=== PATIENT | female | born 1960 ===

== ENCOUNTER → 2021-07-30 | Outpatient (CLI) | payer OTHER ==
[~2021-07-30] VITALS: Ht 157 cm; Wt 82.0 kg
[~2021-07-30] MED LIST: LIDOCAINE 1% INJ 20 ML VIAL INJ ONE
--- NOTE | 2021-07-30 16:37 | Diagnostic Imaging Report ---
INDICATION: Ultrasound-guided biopsy of the left breast. INDICATION: Abnormal mammogram. FINDINGS: The mammogram and ultrasound exam of the left breast performed on 07/14/2021 noted a 1.5 x 1.9 x 1.3 cm hypoechoic irregular spiculated shadowing mass in the 2 o'clock position of the left breast. This finding was felt to be suspicious for malignancy. Following aseptic preparation of the skin and administration of local anesthesia, four passes were made through the area of concern with a 14-gauge Achieve needle. Following the biopsy, a clip was inserted into the biopsy site. The patient tolerated the procedure well and was dismissed in good condition. IMPRESSION: There has been a successful ultrasound-guided biopsy of the hypoechoic lesion in the left breast. A final pathology report is pending. Dictated by: Dictated on workstation # [id number]
--- NOTE | 2021-07-31 09:37 | Diagnostic Imaging Report ---
Unilateral diagnostic left mammogram INDICATION: Post biopsy The recent 3D bilateral diagnostic mammogram performed at [facility] in [place], [place] on 07/14/2021 did reveal an area of architectural distortion within the left breast at the 2 o'clock position. The ultrasound exam performed in conjunction with that study also noted a poorly defined hypoechoic mass in this region and biopsy was recommended to exclude malignancy. The patient did undergo an ultrasound-guided biopsy of the area of concern in the left breast just prior to this exam.. On the CC and ML images of this exam, there is a stereotactic clip in the region of the architectural distortion seen on the prior exam. Therefore, I do feel that the area in question has been adequately sampled. A final pathology report is pending. IMPRESSION: The stereotactic clip is in close proximity to the area of architectural distortion seen previously. A final pathology report is pending. Dictated by: Dictated on workstation # [id number]
== END ==
LOC: RAD 13:00
PROVIDERS: ATTEND Nurse Practitioner Family
DX: N63.21 Unspecified lump in the left breast, upper outer quadrant (principal)
CPT/HCPCS: 19083; 77065; G0279

== ENCOUNTER 2021-08-12 10:02 | Outpatient (RCR) | payer SELFPAY ==
[2021-08-27] MEDS ORDERED: METO-333 PO (12:26)
[2021-08-27] MEDS ORDERED: ACHD5005 PO (12:26)
== END 2021-09-11 | disposition home or self-care (01) ==
LOC: ONC 10:02
PROVIDERS: ATTEND Internal Medicine Hematology & Oncology
DX: C50.912 Malignant neoplasm of unspecified site of left female breast (principal)
CPT/HCPCS: 99214

== ENCOUNTER 2021-08-20 05:35 | Outpatient (CLI) | payer SELFPAY ==
[~2021-08-20] VITALS: Ht 157.4 cm; Wt 83.9 kg
== END 2021-08-20 15:49 | disposition home or self-care (01) ==
LOC: PREOP 05:35
PROVIDERS: ATTEND Surgery
DX: Z01.818 Encounter for other preprocedural examination (principal)

== ENCOUNTER 2021-08-27 06:06 | Day surgery (SDC) | payer SELFPAY ==
[2021-08-27] VITALS (11 sets, daily range): BP systolic 138–198; BP diastolic 76–98
[~2021-08-27] VITALS: Ht 157.5 cm; Wt 83.9 kg
[2021-08-27] MEDS ORDERED: ceFAZolin 2 GM IV Premixed 50 ML IV ONE (07:00)
[2021-08-27] MEDS ORDERED: meTOprolol 5 MG/5 ML (LOPRESSOR) VIAL IV ONE ×2 (08:45→09:00)
--- NOTE | 2021-08-27 08:56 | Consultation-Cardiology ---
HPI-Cardiology Cardiology Consultation: Date of Consultation 08/27/2021 Date of Admission 08/27/2021 Attending Physician Katie Barton DO Admitting Physician Niki Pacheco DO Consulting Physician CRISTÓBAL KERR JR, MD HPI: Time Seen by a Provider: 08:52 Chief Complaint: Atrial fibrillation I had the pleasure of seeing Alida in the outpatient day surgery unit at [facility] in [place], [place] this morning. She speaks Uzbek. I conversed with her in Uzbek and also her daughter was at the bedside assisting. She has no known cardiac disease. She does not take any medications at home. She recently found a lump in her left breast and subsequently underwent a mammogram followed by a biopsy. She was found to have breast cancer and came in today for a lumpectomy and breast node dissection. While she was being admitted to outpatient surgery, she was noted to have tachycardia and elevated blood pressures. An electrocardiogram was performed that showed sinus tachycardia with probable brief bursts of atrial fibrillation. Her blood pressure was markedly elevated. A cardiology consultation was then requested. She states that from time to time she will have palpitations with a sensation of a fluttering in her chest. This often happens when she is laying down. This will make her chest feel tight and then she will feel short of breath. If she sits up and take some deep breaths, these symptoms will resolve. This has been going on for at least the past 6-12 months. Last year she was in [place] for work and at that time it sounds as though she saw a small business sales representative who recommended a stress test. However, before she could get the test, she came back to [place] to live with her daughter because her job was finished for the year. She has not been told in the past that she has high blood pressure although it sounds as though she may not routinely see physicians. She denies paroxysmal nocturnal dyspnea, orthopnea, syncope, or ankle edema. Certain portions of this document may have been dictated utilizing voice recognition technology. Inherent to this technology, typographical and gr ammatical errors may exist. As much as I am diligent to identify and correct these mistakes, some errors may remain in the document. Review of Systems-Cardiology Review of Systems Other comments Review of 10 organ systems is as per the history of present illness, otherwise negative. HPG-Guyelu-Owovvg Hx Patient Social History Smoking Status: Former Smoker Past Medical History PMH As described under Assessment. Family Medical History Family Medical History: The patient does not know of any family history of premature coronary artery disease in first-degree relatives. Allergies and Home Medications Allergies Coded Allergies: No Known Drug Allergies (Unverified , 08/27/21) Patient Home Medication List Home Medication List Reviewed: Yes Hydrocodone Bit/Acetaminophen (HYDROcodone/APAP 5 MG/325 MG TAB) 1 Tab Tab, 1 TAB PO Q8H PRN for PAIN-MODERATE (5-7) Prescribed by: KATIE BARTON on 08/27/21 1227 Metoprolol Tartrate (Metoprolol Tartrate) 25 Mg Tablet, 25 MG PO BID Prescribed by: KATIE BARTON on 08/27/21 1226 Exam Vital Signs Vital Signs Date Time Temp Pulse Resp B/P (MAP) Pulse Ox O2 Delivery O2 Flow Rate FiO2 08/27/21 06:45 36.4 114 18 198/98 (131) 98 Room Air Physical Exam General: Alert. No acute distress. Well nourished and appears stated age. Eye: Extraocular movements are intact. Conjunctivae are clear. There are no xanthelasma. HENT: Normocephalic. Atraumatic. Carotid pulsations 2/2 without bruits. Neck: Jugular venous pressure does not appear elevated. No thyromegaly appreciated. Respiratory: Lungs are clear to auscultation. Respirations are non-labored. Breath sounds are equal. Symmetrical chest wall expansion. Cardiovascular: Tachycardia with irregular rhythm. No murmur. No gallop. Point of maximal impulse is not appear displaced. Good pulses equal in all ext remities. No edema. Gastrointestinal: Soft. Normal bowel sounds. Skin: Skin turgor is normal. There is no pallor. Musculoskeletal: No kyphosis or scoliosis appreciated. Neurologic: Alert and oriented to person, place, time. Cranial nerves 3-12 appear grossly intact. The patient has good motor tone strength in the upper and lower extremities bilaterally. Psychiatric: Cooperative. Appropriate mood & affect. Radiology ECHOCARDIOGRAM (08/27/2021): 1. This is a technically difficult study due to poor image quality in the apical views. 2. Left ventricle: The cavity size is normal. There is mild concentric hypert rophy. Systolic function is normal. The estimated ejection fraction is 60-65%. There are no regional wall motion abnormalities identified on this technically difficult study. Doppler parameters are consistent with abnormal left ventricular relaxation (grade 1 diastolic dysfunction). 3. Aortic valve: There is mild aortic valve sclerosis. 4. Pulmonary arteries: The pulmonary artery pressure cannot be estimated on this study due to inadequate tricuspid regurgitant envelope. ECG Impression ECG Comment Sinus tachycardia with brief bursts of irregular supraventricular tachycardia which could be atrial fibrillation with diffuse, nonspecific ST-T wave changes. Diagnosis/Problems Diagnosis/Problems (1) Preoperative cardiovascular examination Assessment & Plan: Based upon the patient's overall clinical status and the results of the most recent, pertinent cardiac testing, this patient should be at low risk of a perioperative cardiac event while undergoing their noncardiac procedure/surgery. No additional preoperative cardiac testing is indicated. The risk can be kept to a minimum by having the patient take any cardiac medications they have been prescribed in the perioperative period. (2) Paroxysmal atrial fibrillation Assessment & Plan: It seems as though the patient may be symptomatic with the atrial fibrillation. Her [id number] score is at least 1 for female sex and possibly to if she has hypertension. I have given her 1 dose of intravenous metoprolol tartrate and started her on oral metoprolol tartrate 25 mg twice a day. I will plan to see her in the office in 1 week and have her undergo some additional outpatient testing. For now, I will not start the patient on oral anticoagulation. (3) Hypertensive urgency Assessment & Plan: Her blood pressure was markedly elevated prior to surgery this morning. However, her daughter tells me the patient is normally normotensive and does not have a history of hypertension. I will initiate therapy with metoprolol tartrate as outlined above. I have asked her daughter to monitor her blood pressure at home and bring a copy of the results to her outpatient office visit with me. (4) Abnormal electrocardiogram Assessment & Plan: Her electrocardiogram shows nonspecific ST changes with the tachycardia. She is also having some vague chest tightness which may just be related to the tachycardia. I may consider an outpatient stress test. From a cardiac standpoint, if today's surgery was uneventful, the patient can be discharged home. I have asked her nurse to schedule the patient for a follow-up visit with me in the office next week. CRISTÓBAL KERR JR, MD Aug 27, 2021 08:56
[2021-08-27] MEDS: LACTATED RINGERS 1,000 ML IV PRN ×2 (08:58→12:12)
[2021-08-27] MEDS ORDERED: meTOprolol TARTRATE 25 MG (LOPRESSOR) TABLET PO SCH (09:00)
[2021-08-27] MEDS ORDERED: ceFAZolin 2 GM IV Premixed 50 ML ONE (09:03)
--- NOTE | 2021-08-27 10:52 | Progress Note-Pre Operative ---
Pre-Operative Progress Note H&P Reviewed The H&P was reviewed, patient examined and no changes noted. Time Seen by Provider: 10: Date H&P Reviewed: Aug 27, 2021 Time H&P Reviewed: 10: Pre-Operative Diagnosis: Left breast CA, side marked KATIE AARON DO Aug 27, 2021 10:52
[2021-08-27] MEDS ORDERED: METHYLENE BLUE 0.5% (PROVAYBLUE) 50 mg/10 ml vial IV ONE (10:57)
[2021-08-27] MEDS ORDERED: LIDOCAINE/EPI 1%-1:200,000 (XYLOCAINE) 30 ML VIAL ONE (10:57)
[2021-08-27] MEDS ORDERED: fentaNYL INJ 100 MCG/2 ML AMP ONE (11:07)
[2021-08-27] MEDS ORDERED: ONDANSETRON 4 MG/2 ML (SDV) Z0FRAN ONE (11:07)
[2021-08-27] MEDS ORDERED: MIDAZOLAM 2 MG/2 ML (VERSED) VIAL ONE (11:07)
[2021-08-27] MEDS ORDERED: proPOfol 200 MG/20 ML (DIPRIVAN) VIAL IV ONE (11:07)
[2021-08-27] MEDS ORDERED: LIDOCAINE PF 2% 5 ML (XYLOCAINE) VIAL ONE (11:07)
[2021-08-27] MEDS ORDERED: SEVOFLURANE (ULTANE) 15 ML INHAL SOLN ONE (12:20)
--- NOTE | 2021-08-27 12:23 | Progress Note-Post Operative ---
Post-Operative Progess Note Surgeon (s)/Disc Sander (s) Surgeon KATIE AARON DO Disc Sander: Dhara Pre-Operative Diagnosis Left breast CA, side marked Post-Operative Diagnosis same pending pathology Procedure & Operative Findings Date of Procedure 08/27/21 Procedure Performed/Findings 1) Left breast Partial Mastectomy 2) [place] lymph node bx 3) injection of methylene blue Anesthesia Type LMA Estimated Blood Loss Estimated blood loss (mL): less than 30ml Specimens/Packing Specimens Removed left breast specimen [place] lymph node x 3 Skin - 996 In Vivo - 1312 Ex vivo SLN #1 - 212 SLN #2 - [id number] SLN #3 - [id number] KATIE AARON DO Aug 27, 2021 12:23
[2021-08-27] MEDS ORDERED: METO-333 PO (12:26)
[2021-08-27] MEDS ORDERED: ACHD5005 PO (12:26)
--- NOTE | 2021-08-27 12:28 | Discharge Inst-Surgical ---
Discharge Inst-Surgical Depart Medication/Instructions New, Converted or Re-Newed RX: Transmitted to Pharmacy Patient Instructions Follow up Appt: Make appointment for 1 week. [phone] Instructions: No lifting greater than 20 pounds. No strenuous activity. May shower in 24 hours, no tub bath or soaking. Use incentive spirometer at home as directed. No Smoking Skin/Wound Care: May remove bandages in am. You need to leave the Dermabond on incision it will fall off on it's own. Symptoms to Report: Appetite Changes, Extremity Discoloration, Numbness/Tingling, Swelling Increased, Bleeding Excessive, Eyesight Changes, Pain Increased, Urine Color Change, Constipation(Persistent), Fever over 101 degree F, Pain/Pressure in chest, Urinating Difficulty, Cough Up/Vomit Blood, Heart Beat Irreg/Pounding, Pain/Pressure in jaw, Cramps in feet or legs, Lightheadedness, Pain/Pressure in shoulder, Diarrhea(Persistent), Memory Changes Suddenly, Questions/Concerns, Weight gain consecutive days, Dizziness/Fainting, Nausea/Vomiting, Shortness of Breath, Weight gain over 2 pounds If questions or concerns contact your physician Or seek help at emergency department. Activity Activity as Tolerated: Yes Activity Instructions: Avoid Stress to Incision Driving Instructions: No Driving/Refer to Dr. Melo Discharge Diet: No Restrictions Diet After 24 Hours: Clear Liquid if Nauseous If Any Problems/Questions/Issu: Contact Your Physician, Go to Emergency Room Skin/Wound Care Infection Signs and Symptoms: Increased Redness, Foul Odor of Wound, Increased Drainage, Skin Itchy or Has a Rash, Increased Swelling, Temperature Above 101 F Wound Care Comment: wear a very tight fitting bra, 24 hours a day for a week, can take off to shower Bathing Instructions: Shower Stitches/Daryl/Dermabond Dis: Dermabond KATIE AARON DO Aug 27, 2021 12:28
[2021-08-27] MEDS ORDERED: ONDANSETRON 4 MG/2 ML (SDV) Z0FRAN IVP PRN (12:45)
[2021-08-27] MEDS ORDERED: morphine INJ 10 MG/ML 1ML (SYR OR VIAL) IVP ONE (12:45)
[2021-08-27] MEDS ORDERED: HYDROmorphone 2 MG/ML VIAL (DILAUDID) IV ONE (12:45)
--- NOTE | 2021-08-27 12:49 | Diagnostic Imaging Report ---
INDICATION: Left breast carcinoma. Patient status post lumpectomy. Specimen radiograph was submitted. Within the specimen is a spiculated density. There is also a marker clip located at coordinates E6. Benign calcifications are present well. IMPRESSION: Spiculated density as well as a marker clip are located within the specimen. Dictated by: Dictated on workstation # [id number]
--- NOTE | 2021-08-27 13:33 | Diagnostic Imaging Report ---
INDICATION: Left breast carcinoma. DETAILS OF THE PROCEDURE: A total of 1.0 mCi technetium 99M filtered sulfur colloid was injected in four separate aliquots in a left breast periareolar distribution. Imaging was performed for 2 hours. Images demonstrate activity in the periareolar region. There was migration of activity into the left axilla, consistent with sentinel nodes. These were marked on the patient's skin prior to surgery. IMPRESSION: Lymphoscintigraphy of the left breast, as described. Dictated by: Dictated on workstation # [id number]
--- NOTE | 2021-08-27 14:59 | Anesthesia-General Post-Op ---
General Patient Condition Mental Status/LOC: Same as Preop Cardiovascular: Satisfactory Nausea/Vomiting: Absent Respiratory: Satisfactory Pain: Controlled Complications: Absent Post Op Complications Complications None Follow Up Care/Instructions Patient Instructions None needed. Anesthesia/Patient Condition Patient Condition Patient is now discharged to home. She was doing well in PACU, no complaints, stable vital signs, no apparent adverse anesthesia problems. No complications noted per nursing in [place] prior to discharge. TOY DUMONT DO Aug 27, 2021 14:58
--- NOTE | 2021-08-27 23:38 | OPERATIVE REPORT ---
DATE OF SERVICE: 08/27/2021 PREOPERATIVE DIAGNOSIS: Left breast invasive lobular cancer. POSTOPERATIVE DIAGNOSIS: Left breast invasive lobular cancer, pending pathology. PROCEDURES: 1. Left breast partial mastectomy. 2. [place] lymph node biopsy. 3. Injection of methylene blue dye. SURGEON: Konrad Barton DO HEALTH PROGRAM SPECIALIST: Vidal Jules DO. ANESTHESIA: LMA. SPECIMEN: Partial mastectomy as well as sentinel lymph nodes. BLOOD LOSS: Minimal. FLUIDS: Per anesthesia. POSTOPERATIVE CONDITION: Stable. INDICATION FOR PROCEDURE: The patient is a 60-year-old female who had a left breast lobular invasive carcinoma found and needs this removed. FINDINGS: The patient had a left breast lobular invasive cancer removed, sent the specimen to pathology. Clip was in it as well as the mass. The readings from the Neoprobe showed 996 on the skin. There were three lymph nodes in vivo, they were 13, 12 ex vivo. Lymph node #1 was 212, lymph node #2 was [address] and lymph node #3 was 6734. PROCEDURE NOTE: After informed consent was obtained, the patient was first sent to radiology where she had injection of radioactive dye. During this time, she had some runs of atrial fibrillation, the thought it was possibly SVT. Cardiology saw her, thought that she would be okay on beta blockers and then we proceeded with the surgery. She was brought to the operating room, placed on the table in supine position. Timeout was performed. She had previously been marked on the left side, this was noted. I then injected methylene blue at 12, 3, 6, and 9 o'clock position, right outside the areolar line, 0.5 mL subcutaneously, then massaged this for 5 minutes, used the Neoprobe and got a reading of 996 on the skin. She was then sterilely prepped and draped in normal fashion. Local lidocaine was used to infiltrate the skin along approximately 2 o'clock line. I made an incision with #15 blade, carried down through the skin into subcutaneous tissue, deepened down to subcutaneous tissue with Bovie electrocautery, could feel the mass, the cancer in the left upper outer quadrant, able to grasp the tissue and make this incision, then created flaps superiorly and inferiorly going around this mass with Bovie electrocautery, going down around down to the pectoralis major fascia, removing this mass en bloc trying to stay outside of it, placed a short stitch superiorly at the 12 o'clock position right in the middle of the specimen or senior living down from the skin to the chest wall, placed a long suture laterally and then placed two sutures on the most anterior aspect of this. This was then passed off table, sent to radiology where they confirmed the clip and the mass was in the specimen. Area was cleaned and dried, and hemostasis obtained and from this incision, then started dissecting into the axilla, used the Neoprobe, got in vivo number of 13 12, got into the axillary fat pad and saw blue lymph node, grabbed this with a Belpre and then removed this. This was 212 ex vivo and then placed the Neoprobe back into the axillary fat pad and found another hot area, dissected carefully with hemostat, able to then grasp these lymph nodes with a Belpre and then cut this out with Bovie electrocautery. Ex vivo, there were 2 lymph nodes, one was [id number] on the Neoprobe and the other was 6734. There was some bleeding. This was controlled with Bovie electrocautery. I then copiously irrigated with sterile water. Hemostasis obtained. There was no bleeding at the end of the case and at this point then closed the incision in 2 layers, closing with Vicryl and then running 4-0 undyed Monocryl. Area was cleaned and dried, pressure dressing placed. The patient transferred to recovery room in stable condition. Sponge, instrument and needle count correct at the end of the case. Dr. Jules assisted in this case helping to make incisions, close incisions, identify anatomy, hold anatomy out of the way. Job ID: [id number] DocumentID: [id number] Dictated Date: 08/27/2021 20:00:31 Rn Private Duty Date: 08/27/2021 23:37:15 Dictated By: DO AYAN MCGINNIS
== END 2021-08-27 14:45 ==
LOC: CARD 06:06
PROVIDERS: ATTEND Surgery
DX: C50.912 Malignant neoplasm of unspecified site of left female breast (principal); I48.0 Paroxysmal atrial fibrillation; I47.1 Supraventricular tachycardia; I49.3 Ventricular premature depolarization; I49.1 Atrial premature depolarization; I35.8 Other nonrheumatic aortic valve disorders; Z87.891 Personal history of nicotine dependence
CPT/HCPCS: 19301; 38500; 38900; 76098; 78195; 87081; 88305; 88307; 88342; 93005; 93306; A9541

== ENCOUNTER 2021-09-30 11:00 | Outpatient (RCR) | payer OTHER ==
[~2021-09-30 11:00] MED LIST changes: +ACHD5005 PO; -LIDOCAINE 1% INJ 20 ML VIAL INJ ONE; +METO-333 PO
== END 2021-10-11 | disposition home or self-care (01) ==
LOC: ONC 11:00
PROVIDERS: ATTEND Internal Medicine Hematology & Oncology
DX: C50.912 Malignant neoplasm of unspecified site of left female breast (principal); I10 Essential (primary) hypertension; E66.9 Obesity, unspecified
CPT/HCPCS: 99213

== ENCOUNTER 2021-11-11 10:36 | Outpatient (RCR) | payer OTHER | END 2021-11-11 13:52 | disposition home or self-care (01) | LOC: ONC 10:36 | PROVIDERS: ATTEND Internal Medicine Hematology & Oncology | DX: C50.912 Malignant neoplasm of unspecified site of left female breast (principal); I10 Essential (primary) hypertension; E66.9 Obesity, unspecified | CPT/HCPCS: 99213 ==

== ENCOUNTER 2021-11-17 11:01 | Outpatient (RCR) | payer OTHER | END 2021-12-11 | disposition home or self-care (01) | LOC: ONC 11:01 | PROVIDERS: ATTEND Internal Medicine Hematology & Oncology | DX: C50.912 Malignant neoplasm of unspecified site of left female breast (principal); I10 Essential (primary) hypertension; E66.9 Obesity, unspecified; I48.0 Paroxysmal atrial fibrillation | CPT/HCPCS: 99204 ==

== ENCOUNTER → 2021-12-04 | Outpatient (CLI) | payer OTHER ==
[~2021-12-04] MED LIST changes: +CATHETER FLUSH 10 ML SYR IVP PRN; +REGADENOSON 0.4 MG/5 ML SYR (LEXISCAN) IV ONE
[2021-12-04 11:09] LABS: HEMATOCRIT 43 % (35-52); HEMOGLOBIN 13.3 g/dL (11.5-16.0); MEAN CORPUSCULAR HEMOGLOBIN 29 pg (25-34); MEAN CORPUSCULAR HGB CONC 31 g/dL (32-36); MEAN CORPUSCULAR VOLUME 93 fL (80-99); MEAN PLATELET VOLUME 11.7 fL (9.0-12.2); PLATELET COUNT 178 10^3/uL (130-400); WHITE BLOOD COUNT 7.2 10^3/uL (4.3-11.0)
[2021-12-04 11:37] LABS: BILIRUBIN,TOTAL 0.5 MG/DL (0.1-1.0); CALCIUM 8.9 MG/DL (8.5-10.1); CREATININE SERUM 0.63 MG/DL (0.60-1.30); TOTAL PROTEIN 7.7 GM/DL (6.4-8.2)
[2021-12-04 12:14] VITALS: BP 168/80
--- NOTE | 2021-12-04 14:22 | NUCLEAR STRESS TEST ---
REGADENOSON NUCLEAR STRESS Date of procedure: 12/04/2021. Primary care provider: Niki Pacheco DO Admitting physician: Thomas Guerrero Jr., MD. INDICATION: Paroxysmal atrial fibrillation. BASELINE ELECTROCARDIOGRAM: Sinus rhythm with occasional premature supraventricular complexes. STRESS TEST PROCEDURE: The patient was administered 0.4 mg of intravenous Regadenoson. The resting heart rate was 62 bpm and the peak heart rate was 113 bpm. The resting blood pressure was 168/80 mmHg and the minimum blood pressure was 166/101 mmHg. This represents a normal heart rate and a normal blood pressure response to Regadenoson. The test was stopped due to the protocol. There was no chest discomfort during the test. There were frequent premature supraventricular complexes and a short run of paroxysmal atrial tachycardia during the test. There were no significant stress induced electrocardiogram changes. NUCLEAR PROCEDURE: The patient was administered 10.1 mCi of intravenous technetium 99m Tetrofosmin at rest for the rest images. The patient was subsequently administered 32.7 mCi of intravenous technetium 99m Tetrofosmin at peak stress for the stress images. Following an appropriate wait after each injection, imaging was obtained. The images were subsequently processed and reformatted in the usual views. Gated imaging was obtained. The image quality was adequate with a mild degree of gastrointestinal attenuation artifact. CT attenuation correction was used as a adjunct to standard imaging. Both the corrected and uncorrected images were reviewed for interpretation. NUCLEAR RESULTS: There was normal myocardial perfusion in all segments without evidence of infarction or ischemia. There was normal left ventricular chamber size with an end-diastolic volume of 69 mL and an end-systolic volume of 20 mL. There was no evidence of transient ischemic dilatation. The TID ratio was 0.77. There was normal wall motion in all segments with a calculated ejection fraction of 71%. IMPRESSION: 1. Normal heart rate and blood pressure response to regadenoson. 2. There was no chest discomfort or electrocardiogram changes during the test. 3. There were frequent premature supraventricular complexes and a short run of paroxysmal atrial tachycardia during the test. 4. There was normal myocardial perfusion in all segments without evidence of infarction or ischemia. 5. There was normal wall motion in all segments with a calculated ejection fraction of 71%. Certain portions of this document may have been dictated utilizing voice recognition technology. Inherent to this technology, typographical and grammatical errors may exist. As much as I am diligent to identify and correct these mistakes, some errors may remain in the document. THOMAS GUERRERO JR, MD Dec 04, 2021 14:22
== END ==
LOC: CARD 11:30
PROVIDERS: ATTEND Internal Medicine Cardiovascular Disease
DX: I48.0 Paroxysmal atrial fibrillation (principal); I47.1 Supraventricular tachycardia; I10 Essential (primary) hypertension; C50.919 Malignant neoplasm of unspecified site of unspecified female breast; E66.9 Obesity, unspecified
CPT/HCPCS: 78452; 80053; 80061; 83036; 84443; 85027; 93017; A9502; 36415